=== PATIENT | female | born 1980 | race Caucasian/White ===

== ENCOUNTER 2017-01-26 03:30 | Inpatient (IN) | payer MEDICAID ==
[2017-01-26 04:06] LABS: APPEARANCE,URINE CLOUDY; BILIRUBIN,URINE NEGATIVE (NEGATIVE); GLUCOSE, URINE NEGATIVE (NEGATIVE); KETONES,URINE 20 mg/dL (NEGATIVE); LEUKOCYTE ESTERASE,URINE NEGATIVE (NEGATIVE); NITRITE,URINE NEGATIVE (NEGATIVE); PROTEIN,URINE NEGATIVE (NEGATIVE); URINE SPECIFIC GRAVITY 1.013; UROBILINOGEN,URINE NEGATIVE mg/dL (<2.0)
[2017-01-26 04:21] LABS: URINE BARBITURATES SCREEN NEGATIVE; URINE METHADONE SCREEN NEGATIVE; URINE OPIATES LOW NEGATIVE; URINE PHENCYCLIDINE SCREEN NEGATIVE
[2017-01-26] MEDS ORDERED: RINGERS SOLUTION,LACTATED 1,000 ML IV PRN ×2 (04:55→06:46)
[2017-01-26] MEDS ORDERED: CEFAZOLIN 2 GM/D5W RTU 2 GM/50 ML RTUPB IV ONE (04:56)
[2017-01-26] MEDS ORDERED: CITRIC ACID/SODIUM CITRATE ORAL SOLN 15 ML UDCUP ONE (04:56)
[2017-01-26] MEDS ORDERED: CITRIC ACID/SODIUM CITRATE ORAL SOLN 15 ML UDCUP PO ONE (04:58)
[2017-01-26] MEDS ORDERED: PROPOFOL INJ 200 MG/20 ML VIAL IV ONE (05:12)
[2017-01-26] MEDS ORDERED: EPHEDRINE SULFATE INJ 50 MG/1 ML AMPULE ONE (05:12)
[2017-01-26] MEDS ORDERED: OXYTOCIN 10 UNIT/ML VIAL ONE (05:12)
[2017-01-26] MEDS ORDERED: FENTANYL CITRATE INJ/PF 100 MCG/2 ML AMPUL ONE (05:12)
[2017-01-26] MEDS ORDERED: MIDAZOLAM 2 MG/2 ML INJ ONE (05:12)
[2017-01-26] MEDS ORDERED: CEFAZOLIN 2 GM/D5W RTU 2 GM/50 ML RTUPB IV SCH (05:30)
[2017-01-26 05:33] LABS: ABSOLUTE LYMPHOCYTES (AUTO) 1.5 10^3/uL (0.5-4.7); ABSOLUTE MONOCYTES (AUTO) 0.4 10^3/uL (0.1-1.4); ABSOLUTE NEUT (AUTO) 6.2 10^3/uL (1.7-8.2); BASOPHILS % (AUTO) 0.3 % (0-2); EOSINOPHILS % (AUTO) 0.3 % (0-6); HEMATOCRIT 35.9 % (36.0-47.0); HEMOGLOBIN 12.4 g/dL (12.0-15.5); HGB HCT DIFFERENCE 1.3; LYMPHOCYTES % (AUTO) 18.4 % (13-45); MEAN CORPUSCULAR HEMOGLOBIN 29.4 pg (27.0-33.4); MEAN CORPUSCULAR HGB CONC 34.6 g/dL (32.0-36.0); MEAN CORPUSCULAR VOLUME 85 fl (80-97); MONOCYTES % (AUTO) 5.1 % (3-13); RED BLOOD COUNT 4.22 10^6/uL (3.72-5.28); RED CELL DISTRIBUTION WIDTH 15.5 % (11.5-14.0); SEGMENTED NEUTROPHILS % (AUTO) 75.9 % (42-78); WHITE BLOOD COUNT 8.1 10^3/uL (4.0-10.5)
[2017-01-26] MEDS ORDERED: MORPHINE SULFATE 10 MG/ML INJ IV PRN ×2 (06:00→06:46)
[2017-01-26] MEDS ORDERED: ONDANSETRON HCL INJ/PF 4 MG/2 ML SDV IV PRN (06:00)
[2017-01-26] MEDS ORDERED: FENTANYL CITRATE INJ/PF 100 MCG/2 ML AMPUL IV PRN ×3 (06:00)
[2017-01-26] MEDS ORDERED: MEPERIDINE HCL/PF INJ 25 MG/1 ML DISP.SYRIN IV PRN (06:00)
[2017-01-26] MEDS ORDERED: PROMETHAZINE HCL INJ 25 MG/1 ML VIAL IV PRN ×2 (06:00→06:46)
[2017-01-26] MEDS ORDERED: DIPHENHYDRAMINE HCL 50 MG/ML VIAL IV PRN (06:00)
[2017-01-26] MEDS ORDERED: MEASLES,MUMPS&RUBELLA VACC/PF 0.5 ML VIAL SUBCUT PRN (06:46)
[2017-01-26] MEDS ORDERED: SIMETHICONE 80 MG TAB.CHEW PO PRN (06:46)
[2017-01-26] MEDS ORDERED: DIPH/PERTUSS(ACELL)/TETANUS VAC/PF 0.5 ML SYR (>=10YO) IM PRN (06:46)
[2017-01-26] MEDS ORDERED: ACETAMINOPHEN 325 MG TABLET PO PRN (06:46)
[2017-01-26] MEDS ORDERED: OXYTOCIN/NORMAL SALINE 20 UNIT/1,000 ML RTUINJ IV PRN (06:46)
[2017-01-26] MEDS ORDERED: ACETAMINOPHEN 100 ML IV PRN (06:46)
[2017-01-26] MEDS ORDERED: OXYTOCIN/NORMAL SALINE 20 UNIT/1,000 ML RTUINJ ONE (06:50)
--- NOTE | 2017-01-26 06:53 | OPERATIVE REPORT E ---
Operative Report NAME: RAINA KIDD : 1980 AGE: 36Y DATE OF SURGERY: 01/26/2017 ROOM: LR200 PREOPERATIVE DIAGNOSES: 1. IUP at 38 weeks and 1 day. 2. History of previous shoulder dystocia in her last due to macrosomia. POSTOPERATIVE DIAGNOSES: 1. IUP at 38 weeks and 1 day. 2. History of previous shoulder dystocia in her last due to macrosomia. SURGEON: RODRIGO MIRANDA M.D. ANESTHESIA: Dr. Martínez with spinal. FINDINGS: A male in cephalic presentation with Apgars of 9, 9, weight 8 pounds 3 ounces. Normal uterus, tubes, and ovaries. COMPLICATIONS: Vaginal extension of the hysterotomy. ESTIMATED BLOOD LOSS: 800 mL. SPECIMENS REMOVED: None. PROCEDURE: A low transverse hysterotomy section. PROCEDURE IN DETAIL: Patient was taken to the operating room and prepared and draped in a normal sterile fashion in the supine position with a leftward tilt. A transverse skin incision was made with a scalpel and carried through to the underlying layer of fascia with the same scalpel. Fascia was excised and extended laterally with Mulligan's. Fascia was then dissected from the rectus muscle bluntly and the rectus muscle was divided. Peritoneal cavity was entered bluntly with good visualization of the bladder and the uterus. The bladder blade was inserted and the hysterotomy was nicked and extended laterally with surgeon finger fracture. The infant's head was then delivered atraumatically. The nose and mouth were suctioned with a suction bulb and the cord was clamped and cut and the infant was handed off to awaiting mast maker. The cord blood was collected. The placenta was removed manually. The uterus was exteriorized and cleared of clots and debris. The hysterotomy was closed with 0 Monocryl in a running, locked fashion. At this time, we noticed the vaginal extension and this was also closed with 0 Monocryl in a running, locked fashion. A second layer of the same suture was used in an imbricating fashion to ensure hemostasis. The uterus was returned to the abdomen and the peritoneal cavity was cleared of clots and debris. The rectus muscle and peritoneum were reapproximated with a mattress stitch of 2-0 Chromic. The fascia was closed with 0 Vicryl. Subcutaneous layer was closed with plain catgut and the skin was closed with 4-0 Vicryl. Patient tolerated procedure well. Sponge, lap, and needle counts were correct x2. Patient was taken to recovery in stable condition. DICTATING PHYSICIAN: RODRIGO MIRANDA M.D. [id number] PHY#: [id number] ID: [id number] JOB#: [id number] ACCT: [id number] cc:RODRIGO MIRANDA M.D. >
[2017-01-26] MEDS ORDERED: KETOROLAC TROMETHAMINE INJ/PF 30 MG/1 ML SDV ONE (07:06)
[2017-01-26] MEDS ORDERED: ACETAMINOPHEN 100 ML IV ONE (07:06)
--- NOTE | 2017-01-26 07:13 | Delivery Summary ---
Del Sum A-C Datetime Report Generated by CPN: 01/26/2017 07:12 DELIVERY PERSONNEL DELIVERY PERSONNEL: [id number] Delivery Doctor:: Althea Bajwa MD Anesthesiologist:: Salo Martínez MD DRILL RIG OPERATOR:: Anjana Harry CRNA Labor and Delivery Nurse:: Romaine Flynn RN Labor and Delivery Nurse:: Collette Tabares RN Geophysical Support Specialist:: Elisabet Mcrae RN Neonatal Nurse Practitioner:: JAIDEN Childers Nursery Nurse:: Madelaine Esquivel RN Assistant Director Of Admissions/[employer] ATTENDANT: ST Octavia Assistant Director Of Admissions/MARINE [employer]ICE ST[employer] ATTENDANT: Federica Semar, MDS RN MATERNAL INFORMATION Delivery Anesthesia: Spinal Medications After Delivery: Pitocin Bolus-Please Comment; Pitocin Drip 20 Units/1000ml NSS Estimated Blood Loss (ml): 800 Maternal Complications: None LABOR SUMMARY EDC: 02/08/2017 00:00 No. Babies in Womb: 1 Attempted: No Labor Anesthesia: None LABOR INFORMATION Reason for Induction: Not Applicable Onset of Labor: 01/26/2017 04:49 Oxytocin: N/A Group B Beta Strep: negative Antibiotics # of Doses: 0 Steroids Given: None Reason Steroids Not Administered: Not Applicable MEMBRANES Membranes Rupture Method: Artificial Rupture of Membranes: 01/26/2017 05:43 Length of Rupture (hr): 0.02 Amniotic Fluid Color: Clear Amniotic Fluid Amount: None Amniotic Fluid Odor: Normal STAGES OF LABOR Stage 3 hr: 0 Stage 3 min: 1 Total Time in Labor hr: 0 Total Time in Labor min: 56 VAGINAL DELIVERY Episiotomy: None Laceration #1: None Laceration Extension #1: N/A Laceration Repair: Not Applicable Sponge Count Correct: N/A Sharps Count Correct: N/A CSECTION DELIVERY Primary Indication: Other Other Primary Indication: Hx: Previous Should Dystocia Secondary Indication: N/A CSection Urgency: Non-Scheduled CSection Incidence: Primary Labor: Labor Elective: Elective CSection Incision: Lower Uterine Transverse BABY A INFORMATION Infant Delivery Date/Time: 01/26/2017 05:44 Method of Delivery: Born in Route : No : N/A Forceps: N/A Vacuum Extraction: N/A Shoulder Dystocia : No PRESENTATION/POSITION BABY A Presentation: Cephalic Cephalic Presentation: Vertex Breech Presentation: N/A PLACENTA INFORMATION BABY A Placenta Delivery Time : 01/26/2017 05:45 Placenta Method of Delivery: Manual Removal Placenta Status: Delivered SCORES BABY A Heart Rate 1 min: >100 bpm Resp Effort 1 min: Good Cry Reflex Irritability 1 min: Cough or Sneeze or Pulls Away Muscle Tone 1 min: Active Motion Color 1 min: Body Three Points, Extremities Blue Resuscitation Effort 1 min: Tactile Stimulation SCORE 1 MIN: 9 Heart Rate 5 min: >100 bpm Resp Effort 5 min: Good Cry Reflex Irritability 5 min: Cough or Sneeze or Pulls Away Muscle Tone 5 min: Active Motion Color 5 min: Body Three Points, Extremities Blue Resuscitation Effort 5 min: Tactile Stimulation SCORE 5 MIN: 9 INFORMATION BABY A Gestational Age at Delivery: 38.1 Gestational Status: Early Term- 37- 38.6 Weeks Outcome : Liveborn Infant Condition : Stable Infant Sex: Male IDENTIFICATION BABY A Verification Date/Time: 01/26/2017 05:51 ID Band Number: [id number] Mother's Name Verified: Yes Infant RN Verifying : S. Lattibeaudeir, RN Additional Verifying Personnel: RNanette Youel, WEIGHT/LENGTH BABY A Infant Birthweight (gm): 3720 Weight (lb): 8 Infant Weight (oz): 3 Length (in): 19.75 Infant Length (cm): 50.17 CORD INFORMATION BABY A No. Cord Vessels: 3 Nuchal Cord : N/A Cord Blood Taken: Yes-For Storage (Mom's Blood type +) Suction: Mouth; Nose BABY B INFORMATION : N/A
--- NOTE | 2017-01-26 08:22 | Admission Physical ---
Datetime Report Generated by CPN: 01/26/2017 08:21 CURRENT ADMISSION Chief Complaint: Uterine Contractions Indication for Induction: Not Applicable Indication for Induction: Term, Intrauterine Admit Plan: Initiate Section Protocol Admit Plan- Other: was scheduled for primary c/section on 02/01/2017 secondary to h/o shoulder dystocia with brachial injury to in last . Still desires primary c/section although risks/benefits/alternatives discussed. declines BTL with c/section. ALLERGIES Medication Allergies: No Medication Allergies: No Known Allergies (01/26/2017) Medication Allergies: No Known Allergies (10/05/2010) Latex: No Latex Allergies Food Allergies: none Environmental Allergies: none OBSTETRICAL HISTORY EDC: 02/08/2017 00:00 : 7 Para: 5 Term: 4 : 1 SAB: 1 IAB: 0 Ectopic: 0 Livin Cesareans: 0 VBACs: 0 Multiple Births: 0 Gestational Diabetes: No Rh Sensitization: No Incompetent Cervix: No EDILMA: No Infertility: No ART Treatment: No Uterine Anomaly: No IUGR: No Hx Previous C/S: No Macrosomia: No Hx Loss/Stillborn: Yes Hx Loss/Stillborn: Yes PIH: No Hx : No Placenta Previa/Abruption: No Depression/PP Depression: Yes PTL/PROM: No Post Hemorrhage: No Obstetrical History Comments: G1 - 2007 SAB G2 - 2007 23 week IUFD G3 - 2009 37 weeks male 7 lb 4 oz G4 - 2010 39 weeks male 7 lb 9 oz - 2012 39 weeks male 7 lb 10 oz - 2014 38 weeks female 8 lb 12 oz - shoulder dystocia with brachial plexus G7 - current, scheduled c/s SEE RECORDS Alcohol: No Marijuana : No Cocaine: No Other Illicit Drugs: No Cigarettes: Never Smoker. 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 Surgery: No Heart Disease: No Hosp/Surgery: Yes Autoimmune Disorder: No Anesthetic Complications: No Kidney Disease: No Abnormal Pap Smear: Yes Neuro/Epilepsy: No Psychiatric Disorders: No Other Medical Diseases: No Hepatitis/Liver Disease: No Significant Family History: No Varicosities/Phlebitis: No Trauma/Violence : No Thyroid Dysfunction: Yes Medical History Comments: hypothyroidism, gallbladder removed, sleep apnea (cpap at home), childbirth INFECTIOUS HISTORY Gonorrhea: No Genital Herpes: No Chlamydia: No Tuberculosis: No Syphilis: No Hepatitis: No HIV/AIDS Exposure: No Rash or Viral Illness: No HPV: Yes PHYSICAL EXAM General: Normal HEENT: Normal Neurologic: Normal Thyroid: Normal Heart: Normal Lungs: Normal Breast: Normal Back: Normal Abdomen: Normal Genitourinary Exam: Normal Extremities: Normal DTRs: Normal Pelvic Type: Adequate Vital Signs: Reviewed; Within Normal Limits VAGINAL EXAM Dilatation: 5 Effacement: 80 Station: -1 MEMBRANES Pooling: Negative Membranes: Intact FETUS A EGA: 38.1 Monitoring: External US FHR- Baseline: 140 Variability: Moderate 6-25bpm Accelerations: 15X15 Decelerations: None FHR Category: Category I Estimated Weight (gm): 4000 Presentation: Vertex PLANS FOR LABOR AND DELIVERY Pain Management: Spinal Feeding Preference: Breast Benefit of Breast Feed Discussed: Yes INFORMED CONSENT Signature: with User ID: [email or web address]
[2017-01-26] MEDS ORDERED: DEXAMETHASONE SOD PHOSPHATE INJ 4 MG/1 ML VIAL ONE (09:58)
[2017-01-26] MEDS ORDERED: PHENYLEPHRINE HCL INJ/PF 10 MG/1 ML SDV ONE (09:58)
[2017-01-26] MEDS ORDERED: ONDANSETRON HCL INJ/PF 4 MG/2 ML SDV ONE (09:58)
[2017-01-26] MEDS ORDERED: PRENATAL VITAMIN W DHA CAPSULE PO SCH (10:00)
[2017-01-26] MEDS: DOCUSATE SODIUM 100 MG CAPSULE PO SCH ×2 (11:21→17:14)
[2017-01-26] MEDS: OXYCODONE-ACETAMINOPHEN 5-325 MG TABLET PO PRN ×2 (11:34→20:58)
[2017-01-26] MEDS: IBUPROFEN 800 MG TABLET PO SCH ×3 (11:34→23:13)
[2017-01-26] MEDS ORDERED: KETOROLAC TROMETHAMINE INJ/PF 30 MG/1 ML SDV IV SCH (14:00)
[2017-01-26] MEDS ORDERED: PRENATAL VITAMIN W DHA CAPSULE PO ONE (23:45)
[2017-01-27] MEDS: OXYCODONE-ACETAMINOPHEN 5-325 MG TABLET PO PRN ×3 (03:37→15:22)
[2017-01-27] MEDS: IBUPROFEN 800 MG TABLET PO SCH ×4 (05:14→23:26)
[2017-01-27] MEDS: LEVOTHYROXINE SODIUM 0.1 MG TABLET PO SCH (05:15)
[2017-01-27 06:45] LABS: HEMATOCRIT 30.3 % (36.0-47.0); HEMOGLOBIN 10.5 g/dL (12.0-15.5); HGB HCT DIFFERENCE 1.2; MEAN CORPUSCULAR HEMOGLOBIN 29.6 pg (27.0-33.4); MEAN CORPUSCULAR HGB CONC 34.5 g/dL (32.0-36.0); MEAN CORPUSCULAR VOLUME 86 fl (80-97); RED BLOOD COUNT 3.53 10^6/uL (3.72-5.28); RED CELL DISTRIBUTION WIDTH 15.6 % (11.5-14.0); WHITE BLOOD COUNT 9.9 10^3/uL (4.0-10.5)
[2017-01-27] MEDS: DOCUSATE SODIUM 100 MG CAPSULE PO SCH ×2 (09:35→18:16)
--- NOTE | 2017-01-27 10:13 | PDOC PROGRESS REPORT ---
Subjective-OB Subjective: Post Delivery Day: 36 year old. Denies any needs at this time Physical Exam (OB) Vital Signs: Temp Pulse Resp BP Pulse Ox 98.1 F 67 16 97/75 L 100 01/27/17 07:46 01/27/17 07:46 01/27/17 07:46 01/27/17 07:46 01/27/17 07:46 Intake & Output 01/26/17 01/27/17 01/28/17 06:59 06:59 06:59 Intake Total 311 Output Total 800 Balance -489 Weight 107.4 kg - Dressing Removed: No - honeycomb dressing Incision: Dressing, Well Approximated Closure Type: Sutures - Lochia Lochia Amount: Scant < 10 ml Lochia Color: Rubra/Red - Abdomen Description: Soft Hernia Present: No Bowel Sounds: Normoactive Flatus Presence: Present Stool: No Fundal Description: Firm, Midline Fundal Height: u/3 - u/4 Objective-Diagnostic Laboratory: 01/27/17 06:27 01/27/17 06:27 WBC 9.9 RBC 3.53 L Hgb 10.5 L Hct 30.3 L MCV 86 MCH 29.6 MCHC 34.5 RDW 15.6 H Plt Count 134 L
[2017-01-27] MEDS ORDERED: PRENATAL VITAMIN W DHA CAPSULE PO SCH (22:00)
[2017-01-28] MEDS: OXYCODONE-ACETAMINOPHEN 5-325 MG TABLET PO PRN (00:12)
[2017-01-28] MEDS: LEVOTHYROXINE SODIUM 0.1 MG TABLET PO SCH (06:16)
[2017-01-28] MEDS: IBUPROFEN 800 MG TABLET PO SCH ×2 (06:17→12:54)
[2017-01-28] MEDS: DOCUSATE SODIUM 100 MG CAPSULE PO SCH (09:22)
--- NOTE | 2017-01-28 10:40 | PDOC DISCHARGE SUMMARY ---
Final Diagnosis Discharge Date: 01/28/17 - Final Diagnosis (1) AMA (advanced maternal age) multigravida 35+ Is this a current diagnosis for this admission?: Yes (2) Delivery by elective caesarean section Is this a current diagnosis for this admission?: Yes (3) History of shoulder dystocia in prior Is this a current diagnosis for this admission?: Yes Discharge Data - Discharge Medication Prescriptions: Oxycodone HCl/Acetaminophen [Percocet 5-325 mg Tablet] 1 tab PO Q4HP PRN #30 tablet PRN Reason: Ibuprofen [Motrin 800 mg Tablet] 800 mg PO Q8HP PRN #60 tablet PRN Reason: Home Medications: Levothyroxine Sodium 100 mcg PO DAILY 01/26/17 Vit/Iron Fum/Folic AC [ Tablet] 1 each PO DAILY 01/26/17 Ibuprofen [Motrin 800 mg Tablet] 800 mg PO Q8HP PRN #60 tablet 01/28/17 Oxycodone HCl/Acetaminophen [Percocet 5-325 mg Tablet] 1 tab PO Q4HP PRN #30 tablet 01/28/17 Reason(s) for Admission: Ceasarean Section-Primary Procedures: None Intrapartum Procedure(s): : Low Cervical, Transverse - Diagnosis Test Laboratory: Temp Pulse Resp BP Pulse Ox 98.3 F 73 16 104/56 L 100 01/28/17 08:02 01/28/17 08:02 01/28/17 08:02 01/28/17 08:02 01/28/17 08:02 01/26/17 01/26/17 01/27/17 03:47 05:15 06:27 RBC 4.22 3.53 L Hgb 12.4 10.5 L Hct 35.9 L 30.3 L Urine Opiates Screen NEGATIVE - Discharge information/Instructions Discharge Activity: Balance Activity w/Rest, No Lifting Over 10 Pounds, No Lifting/Push/Pulling, Pelvic Rest, No tub bath Discharge Diet: Regular Disposition: HOME, SELF-CARE Follow up with: [facility] in: 4
[2017-01-28 12:17] VITALS: BP 111/67
== END 2017-01-28 15:50 | disposition home or self-care (01) | DRG 766 ==
LOC: LC 03:30 → LR 04:55 → 2S 08:20
PROVIDERS: ADMIT Obstetrics & Gynecology; ATTEND Obstetrics & Gynecology
PROC: 10D00Z1 Extraction of Products of Conception, Low, Open Approach (ICD-10-PCS; principal; 2017-01-26)
PROC: 4A1HXCZ Monitoring of Products of Conception, Cardiac Rate, External Approach (ICD-10-PCS; 2017-01-26)
DX: O99.284 Endocrine, nutritional and metabolic diseases complicating childbirth (principal); E03.9 Hypothyroidism, unspecified; G47.30 Sleep apnea, unspecified; O99.513 Diseases of the respiratory system complicating pregnancy, third trimester; Z3A.38 38 weeks gestation of pregnancy; Z37.0 Single live birth
CPT/HCPCS: 1961; 36415; 80307; 81005; 85025; 85027; 86592; 86850; 86900; 86901; 94799; J0131; J0690; J1100; J1885; J2250; J2370; J2405; J2590; J2704; J3010; J3490